=== PATIENT | male | born 1970 | race Caucasian/White ===

== ENCOUNTER 2020-04-20 00:02 | Emergency (ER) | payer OTHER ==
[~2020-04-20] VITALS: Ht 188 cm; Wt 108.9 kg
[~2020-04-20 00:02] MED LIST: CYCLOBENZAPRINE10 MG PO; IBUPROFEN800 MG PO; NORCO 5-325 TA1 EACH PO
[2020-04-20] MEDS ORDERED: ASPIR-TRIN325 MG PO (04:52)
[2020-04-20] MEDS ORDERED: LIPITOR80 MG GT (04:52)
[2020-04-20] MEDS ORDERED: LOVENOX120 MG/0.8 SUB-Q (04:52)
--- NOTE | 2020-04-21 13:10 | EKG ---
[facility] [address] [facility] [place], [place] [address] Signed Normal sinus rhythm ST \T\ T wave abnormality, consider lateral ischemia Abnormal ECG No previous ECGs available Confirmed by LUIS HERNÁNDEZ DO ([id number]) on 04/21/2020 1:10:02 PM Electronically Signed By: LUIS HERNÁNDEZ DO 04/21/20 1310 PATIENT NAME: ABRAHAM NASH KOBE Electrocardiogram DATE OF : 66 PHYSICIAN: LUIS HERNÁNDEZ DO REPORT #: [id number] REPORT IS CONFIDENTIAL AND NOT TO BE RELEASED WITHOUT AUTHORIZATION
== END 2020-04-20 05:12 | disposition left against medical advice (07) ==
LOC: ED 00:02
DX: I21.4 Non-ST elevation (NSTEMI) myocardial infarction (principal); E78.5 Hyperlipidemia, unspecified; F17.200 Nicotine dependence, unspecified, uncomplicated
CPT/HCPCS: 71045; 80053; 83735; 84484; 85025; 93005; 93010; 96372; 99285-25; J1650